=== PATIENT | female | born 1985 | race Hispanic/Latino ===

== ENCOUNTER 2017-10-08 | Emergency (ER) | payer OTHER ==
--- NOTE | 2017-10-08 05:59 | EDPHYS ---
Physician Documentation [facility] Name: Gloria Lyn Age: 32 yrs Sex: Female : 1985 Arrival Date: 10/08/2017 Time: 05:33 Bed 14 Private MD: ED Physician Kashmir Paul HPI: 10/08 05:55 This 32 yrs old Female presents to ER via Ambulatory with complaints of Back kb Injury. 05:55 The patient presents with pain that is acute. The symptoms are located in the lumbar kb area and right low back. Onset: The symptoms/episode began/occurred last night. The pain does not radiate. Associated signs and symptoms: The patient has no apparent associated signs or symptoms. The problem was sustained from twisting. Modifying factors: The patient symptoms are alleviated by nothing, the patient symptoms are aggravated by nothing. Severity of symptoms: At their worst the symptoms were mild, moderate, in the emergency department the symptoms are unchanged. The patient has not experienced similar symptoms in the past. The patient has not recently seen a physician. 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 States it didn't hurt much at the time, but as the night progressed it hurt more. . Historical: - Allergies: 05:45 No Known Allergies; aa1 - Home Meds: 05:45 None [Active]; aa1 - PMHx: 05:45 None; aa1 - PSHx: 05:45 None; aa1 - Immunization history:: Flu vaccine is up to date. - Social history:: Smoking status: Patient/guardian denies using tobacco. ROS: 05:55 Constitutional: Negative for fever, chills, and weight loss, Cardiovascular: Negative kb for chest pain, palpitations, and edema, Respiratory: Negative for shortness of breath, cough, wheezing, and pleuritic chest pain, Abdomen/GI: Negative for abdominal pain, nausea, vomiting, diarrhea, and constipation, : Negative for injury, bleeding, discharge, and swelling, MS/Extremity: Negative for injury and deformity, Skin: Negative for injury, rash, and discoloration, Neuro: Negative for headache, weakness, numbness, tingling, and seizure. 05:55 Back: Positive for pain at rest. Exam: 05:55 Constitutional: This is a well developed, well nourished patient who is awake, alert, kb and in no acute distress. Head/Face: Normocephalic, atraumatic. Chest/axilla: Normal chest wall appearance and motion. Nontender with no deformity. No lesions are appreciated. Cardiovascular: Regular rate and rhythm with a normal S1 and S2. No gallops, murmurs, or rubs. Normal PMI, no JVD. No pulse deficits. Respiratory: Lungs have equal breath sounds bilaterally, clear to auscultation and percussion. No rales, rhonchi or wheezes noted. No increased work of breathing, no retractions or nasal flaring. Abdomen/GI: Soft, non-tender, with normal bowel sounds. No distension or tympany. No guarding or rebound. No evidence of tenderness throughout. Back: No spinal tenderness. No costovertebral tenderness. Full range of motion. Skin: Warm, dry with normal turgor. Normal color with no rashes, no lesions, and no evidence of cellulitis. MS/ Extremity: Pulses equal, no cyanosis. Neurovascular intact. Full, normal range of motion. Neuro: Awake and alert, GCS 15, oriented to person, place, time, and situation. Cranial nerves II-XII grossly intact. Motor strength 5/5 in all extremities. Sensory grossly intact. Cerebellar exam normal. Normal gait. Vital Signs: 05:45 BP 109 / 79; Pulse 77; Resp 16; Temp 97.6; Pulse Ox 97% on R/A; Weight 68.04 kg; Height aa1 5 ft. 4 in. (162.56 cm); Pain 5/10; 05:45 Body Mass Index 25.75 (68.04 kg, 162.56 cm) aa1 MDM: 05:51 Patient medically screened. kb 05:55 Data reviewed: vital signs, nurses notes. Data interpreted: Pulse oximetry: on room air kb is 97 %. Interpretation: normal. Counseling: I had a detailed discussion with the patient and/or guardian regarding: the historical points, exam findings, and any diagnostic results supporting the discharge/admit diagnosis, the need for outpatient follow up, a family practitioner, to return to the emergency department if symptoms worsen or persist or if there are any questions or concerns that arise at home. Administered Medications: No medications were administered Disposition: 10/08/17 05:58 Discharged to Home. Impression: Low back pain. - Condition is Stable. - Discharge Instructions: Back Pain, Adult, [id number]. - Prescriptions for orphenadrine citrate 100 mg Oral Tablet Sustained Release - take 1 tablet by ORAL route 2 times per day As needed; 10 tablet. - Medication Reconciliation Form, Thank You Letter, Antibiotic Education, Prescription Opioid Use form. - Follow up: Emergency Department; When: As needed; Reason: Worsening of condition. Follow up: Private Physician; When: 2 - 3 days; Reason: Recheck today's complaints, Continuance of care, Re-evaluation by your physician. Addendum: 10/11/2017 07:09 Co-signature as Attending Physician, Kashmir Paul MD I agree with the assessment and w a plan of care. Signatures: Kerry Morrison, KAYDEN-C KAYDEN-Carolin Samuels, RN RN aa1 Kashmir Paul MD MD nv
--- NOTE | 2017-10-08 05:59 | ER ---
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 States, "The patient was confused and went to swing her arm at me so I moved to dodge it and I felt a twinge in my back." NAD noted. Gait steady. Transition of care: patient was not received from another setting of care. Onset of symptoms was October 08, 2017 at 00:00. Care prior to arrival: None. 05:41 Method Of Arrival: Ambulatory aa1 05:41 Acuity: ANDRES 5 aa1 Historical: - Allergies: 05:45 No Known Allergies; aa1 - Home Meds: 05:45 None [Active]; aa1 - PMHx: 05:45 None; aa1 - PSHx: 05:45 None; aa1 - Immunization history:: Flu vaccine is up to date. - Social history:: Smoking status: Patient/guardian denies using tobacco. Screenin:48 Abuse screen: Denies threats or abuse. Denies injuries from another. Nutritional aa1 screening: No deficits noted. Tuberculosis screening: No symptoms or risk factors identified. Fall Risk None identified. Assessment: 05:48 General: Appears in no apparent distress. comfortable, Behavior is calm, cooperative, aa1 appropriate for age. Pain: Complains of pain in back Pain began 0000. Neuro: Level of Consciousness is awake, alert, obeys commands, Oriented to person, place, time, situation, Moves all extremities. Full function Gait is steady. Respiratory: Airway is patent Respiratory effort is even, unlabored, Respiratory pattern is regular, symmetrical. GI: No signs and/or symptoms were reported involving the gastrointestinal system. : No signs and/or symptoms were reported regarding the genitourinary system. EENT: No signs and/or symptoms were reported regarding the EENT system. Derm: Skin is intact, is healthy with good turgor, Skin is pink, warm \\T\\ dry. Musculoskeletal: Circulation, motion, and sensation intact. Capillary refill < 3 seconds, Range of motion: intact in all extremities. 06:07 Reassessment: Patient appears in no apparent distress at this time. Patient is alert, aa1 oriented x 3, equal unlabored respirations, skin warm/dry/pink. Discussed d/c \\T\\ f/u instructions with pt; denies questions or concerns. Vital Signs: 05:45 BP 109 / 79; Pulse 77; Resp 16; Temp 97.6; Pulse Ox 97% on R/A; Weight 68.04 kg; Height aa1 5 ft. 4 in. (162.56 cm); Pain 5/10; 05:45 Body Mass Index 25.75 (68.04 kg, 162.56 cm) aa1 ED Course: 05:33 Patient arrived in ED. es 05:41 Carolin Wu, RN is Primary Nurse. aa1 05:45 Triage completed. aa1 05:45 Arm band placed on right wrist. Patient placed in an exam room, on a stretcher. aa1 05:48 Patient has correct armband on for positive identification. Bed in low position. Call aa1 light in reach. Pulse ox on. NIBP on. 05:51 Kerry Morrison [facility]-C [facility] kb 05:51 Kashmir Paul MD is Attending Physician. kb 06:07 No provider procedures requiring assistance completed. Patient did not have IV access aa1 during this emergency room visit. Administered Medications: No medications were administered Outcome: 05:58 Discharge ordered by . kb 06:07 Discharged to home ambulatory. aa1 06:07 Condition: good 06:07 Discharge instructions given to patient, Instructed on discharge instructions, follow up and referral plans. medication usage, Demonstrated understanding of instructions, follow-up care, medications, Prescriptions given X 1. 06:08 Patient left the ED. aa1 Signatures: Kerry Morrison FNP-C [employer]GER-Carolin Samuels RN RN aa1 Maritza Watson
== END 2017-10-08 06:08 | disposition home or self-care (01) ==
CPT/HCPCS: 99283